=== PATIENT | male | born 1970 | race Caucasian/White ===

== ENCOUNTER 2017-01-05 18:42 | Emergency (ER) | payer OTHER ==
[~2017-01-05] VITALS: Ht 177.8 cm; Wt 93.0 kg
[2017-01-05] MEDS ORDERED: Motrin,Rufen800 MG PO (21:18)
[2017-01-05] MEDS ORDERED: CYCLOBENZAPRINE10 MG PO (21:21)
== END 2017-01-05 21:04 | disposition home or self-care (01) ==
LOC: ED 18:42
DX: S39.92XA Unspecified injury of lower back, initial encounter (principal); S59.902A Unspecified injury of left elbow, initial encounter; S79.922A Unspecified injury of left thigh, initial encounter; Y04.0XXA Assault by unarmed brawl or fight, initial encounter; Y93.01 Activity, walking, marching and hiking; Y92.488 Other paved roadways as the place of occurrence of the external cause; Y99.8 Other external cause status